=== PATIENT | male | born 1935 | race American Indian/Alaskan Native ===

== ENCOUNTER 2016-06-01 09:53 | Outpatient (CLI) | payer MEDICARE ==
--- NOTE | 2016-06-01 10:54 | XRay Report ---
ROUTINE CHEST, TWO VIEWS: HISTORY: Hypertension, end-stage renal disease. The trachea, heart, mediastinal contour, lung terrazas and bony thorax are unremarkable. IMPRESSION: Unremarkable chest x-ray.
== END 2016-06-01 09:54 | disposition home or self-care (01) ==
LOC: XRAY 09:53
PROVIDERS: ATTEND Internal Medicine
DX: I12.0 Hypertensive chronic kidney disease with stage 5 chronic kidney disease or end stage renal disease (principal); N18.6 End stage renal disease
CPT/HCPCS: 36415; 71020; 86706; 86803

== ENCOUNTER 2016-08-06 08:07 | Outpatient (CLI) | payer MEDICARE | END 2016-08-06 08:08 | disposition home or self-care (01) | LOC: LAB 08:07 | PROVIDERS: ATTEND Internal Medicine | DX: N18.6 End stage renal disease (principal) | CPT/HCPCS: 36415; 86706; 86803 ==